=== PATIENT | male | born 1965 | race Caucasian/White ===

== ENCOUNTER 2023-07-18 13:14 | Emergency (ER) | payer OTHER, SELFPAY ==
[2023-07-18 13:25] VITALS: BP 137/85; PULSE 83; RESP 16; TEMP 36.4; O2SAT 100
--- NOTE | 2023-07-18 13:38 | ED.URI ---
HPI - URI/Sore Throat General Chief Complaint: Upper Respiratory Infection Stated Complaint: HEADACHE/COUGH/FEVER/BODY ACHES Time Seen by Provider: 07/18/23 13:39 Source: patient and RN notes reviewed Mode of arrival: ambulatory Limitations: no limitations History of Present Illness HPI Narrative: 58-year-old male presents concern for 4 day history of nasal congestion, sinus drainage, cough. He reports some chills and sweats, denies fever. He has not taken any medications for his symptoms. Reports his has similar symptoms MD elicited complaint: cough, sore throat and nasal congestion Related Data Home Medications Medication Instructions Recorded Confirmed amlodipine 10 mg tablet mg 07/18/23 aspirin 81 mg tablet 81 mg PO DAILY 07/18/23 07/18/23 atorvastatin 40 mg tablet mg 07/18/23 celecoxib 200 mg capsule mg 07/18/23 cholecalciferol (vitamin D3) 25 07/18/23 mcg (1,000 unit) tablet losartan 100 mg tablet mg 07/18/23 omeprazole 20 mg capsule,delayed mg 07/18/23 release phentermine 15 mg capsule mg 07/18/23 sildenafil 100 mg tablet mg 07/18/23 tirzepatide 7.5 mg/0.5 mL mg subcut 07/18/23 subcutaneous pen injector (Mounjaro) topiramate 25 mg tablet mg 07/18/23 Allergies Allergy/AdvReac Type Severity Reaction Status Date / Time No Known Allergies Allergy Verified 07/18/23 13:38 Review of Systems Review of Systems: CONSTITUTIONAL: Denies malaise, fever. Reports fatigue, chills, sweats EYES: Denies visual changes, redness, or discharge. ENT: Reports rhinorrhea, congestion, otalgia and sore throat. CARDIOVASCULAR: Denies chest pain, palpitations, or edema. RESPIRATORY: Reports cough. Denies dyspnea. GASTROINTESTINAL: Denies abdominal pain, nausea, vomiting, diarrhea SKIN: Denies rash or itching. MUSCULOSKELETAL: Denies myalgia. NEUROLOGIC: Denies headache. All systems reviewed & are unremarkable except as noted in HPI and below PMFSH Comments At time of signature, agree with nursing past medical, surgical, social and family history. There is no relevant family history pertinent to the presenting complaint Exam Narrative: GENERAL: Well-appearing, well-nourished, and in no acute distress. HEAD: Normocephalic EYES: PERRLA, conjunctivae clear ENT: Nares clear, turbinates edematous and erythematous, clear discharge. Mucous membranes moist. TM pearly hernandez with dull light reflex bilaterally; no tragal tenderness. Oropharynx not erythematous without lesions. Tonsils not enlarged and without exudate, no drooling, no hoarseness, no trismus, uvula midline. NECK: Supple. No lymphadenopathy CHEST: Clear to auscultation, breath sounds equal. No wheezing, rhonchi, rales, or stridor. No respiratory distress, speaks in full sentences. HEART: Regular rate and rhythm. No murmur heard. SKIN: Warm, dry, no rash. NEURO: Alert and oriented x3. PSYCH: Normal mood and affect Course Course Emergency Course: Patient offered fluid COVID test and declines Patient is aware of diagnosis, understands and agrees to treatment plan. Anticipatory guidance given. Patient agrees to follow-up as directed and is aware of reasons to seek care at the emergency department. Portions of this record may have been created with voice recognition software Level of Care: Express Care Visit Vital Signs Vital signs: Vital Signs Temperature 97.5 F L 07/18/23 13:25 Pulse Rate 83 07/18/23 13:25 Respiratory Rate 16 07/18/23 13:25 Blood Pressure 137/85 07/18/23 13:25 Pulse Oximetry 100 07/18/23 13:25 Temperature 97.5 F L 07/18/23 13:25 Pulse Rate 83 07/18/23 13:25 Respiratory Rate 16 07/18/23 13:25 Blood Pressure 137/85 07/18/23 13:25 Pulse Oximetry 100 07/18/23 13:25 Reviewed. MDM - URI/Sore Throat MDM Narrative Medical decision making narrative: Differential diagnosis considered: Benton virus, strep pharyngitis, allergic rhinitis, upper respiratory tract infection, sinusitis, r
== END 2023-07-18 14:05 | disposition home or self-care (01) ==
PROVIDERS: Emergency Provider Nurse Practitioner
DX: J06.9 Acute upper respiratory infection, unspecified (principal); E78.00 Pure hypercholesterolemia, unspecified; I10 Essential (primary) hypertension; M19.90 Unspecified osteoarthritis, unspecified site
CPT/HCPCS: 99213; G0463

== ENCOUNTER 2025-06-08 07:45 | Outpatient (CLI) | payer OTHER, SELFPAY ==
--- NOTE | ~2025-06-08 | CT_ITS ---
EXAM/PROCEDURE: CT abdomen pelvis wo con HISTORY: Flank pain COMPARISON: None available. TECHNIQUE: Noncontrast CT of the abdomen and pelvis FINDINGS: Minimal fibrotic and benign granulomatous appearing changes in lung bases which are otherwise clear. Borderline cardiomegaly with coronary artery calcifications. No significant pericardial effusion. In the abdomen and pelvis, 7 mm low-density liver lesion left lobe image 19 series 2 probably represents benign cyst plus patient has known history of malignancy. 10 mm lower pole nonobstructing right kidney stone with at least 3 other punctate nonobstructing lower pole right kidney stones. 3 mm nonobstructing lower pole left kidney stone. No obstructing or definite ureteral stones. No urinary bladder stones. Urinary bladder appears normal for technique. Mildly enlarged prostate. Seminal vesicles unremarkable. 2.4 cm minimally complex appearing left renal cyst along the lower pole lateral cortex. No hydroureteronephrosis. No bulky mesenteric or retroperitoneal lymphadenopathy or masses. No grossly inflamed appendix or AAA. Mild to moderate atherosclerotic disease throughout the arteries including moderately extensive calcification at the renal artery origins on both sides. Several tiny layering gallstones with no gross CT evidence of acute cholecystitis appearing otitis. Stomach is unopacified and nondistended but no gross acute abnormality seen. The bowel gas pattern is nonobstructive with no free air free fluid or pneumatosis. Diffuse degenerative changes throughout the bones which otherwise appear intact. Tiny fat-containing inguinal hernias. Extra peritoneal soft tissues unremarkable. IMPRESSION: Directed noncontrast exam demonstrating bilateral nephrolithiasis with no hydroureteronephrosis or definite ureteral stones seen. Several other chronic findings as above. 2.4 cm minimally complex cystic lesion in the left kidney is not fully characterized and follow-up renal ultrasound recommended for complete evaluation. Reviewed, dictated and finalized at location A. TENDER IMPRESSION: Directed noncontrast exam demonstrating bilateral nephrolithiasis with no hydro ureteronephrosis or definite ureteral stones seen. Several other chronic findin gs as above. 2.4 cm minimally complex cystic lesion in the left kidney is not f ully characterized and follow-up renal ultrasound recommended for complete eval uation.
== END 2025-06-08 07:46 | disposition home or self-care (01) ==
LOC: MICIMG 07:46
PROVIDERS: Visit Provider Urology
DX: R10.A1 Flank pain, right side (principal)
CPT/HCPCS: 74176

== ENCOUNTER 2025-06-19 16:13 | Outpatient (CLI) | payer OTHER, SELFPAY ==
--- NOTE | ~2025-06-19 | XR_ITS ---
XR abdomen/kub 1V INDICATION: FLANK PAIN REFERENCE: NONE FINDINGS: A supine view of the abdomen is submitted. The bowel gas pattern is nonobstructive. 11.4 mm right intrarenal stone is noted. There are several smaller 3 to 4 mm stones bilaterally. Osseous structures are intact. IMPRESSION: 11.4 mm right renal stone. Reviewed, dictated and finalized at location S. Y FILTER TENDER IMPRESSION: 11.4 mm right renal stone.
--- OUTSIDE RECORDS SUMMARY | 2025-06-19 16:15 | XMS_ITS | Clinical Summary ---
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 This disclosure is being madepursuant to the Care Everywhere program and may not contain all information available regarding this patient. Last updated 18.[facility] Allergies No known active allergies Medications * Be aware that medications may not be up to date on this document. Alwaysverify current medications with the patient. rosuvastatin (CRESTOR) 5 MG tablet Take 5 mg by mouth once daily 0 12/09/2016 Active omeprazole (PRILOSEC) 20 MG capsule Take 20 mg by mouth once daily 1 11/19/2016 Active metoprolol tartrate (LOPRESSOR) 50 MG tablet Take 50 mg by mouth once daily 0 12/01/2016 Active losartan-hydroCH LOROthiazide (HYZAAR) 100-12.5 MG tablet Take by mouth once daily 0 11/19/2016 Active furosemide (LASIX) 20 MG tablet Take 20 mg by mouth once daily 3 11/27/2016 Active Potassium 99 MG tablet Take 99 mg by mouth once daily Active diclofenac sodium EC (VOLTAREN) 75 MG tablet Take 1 tablet by mouth once daily 0 07/19/2018 Active topiramate (Topamax) 50 MG tablet Take 1 (one) tablet by mouth 2 times daily 11/13/2023 Active Mounjaro 10 MG/0.5ML injection Inject 10 (ten) mg into muscle every 7 days 11/13/2023 Active sildenafil (Viagra) 100 MG tablet Take 1 (one) tablet by mouth once daily as needed 11/24/2023 Active sulfamethoxazole -trimethoprim (Bactrim DS; Septra DS) 800-160 MG tabletIndication s:Right knee pain, unspecified chronicity,Effus ion of bursa of right knee Take 1 (one) tablet by mouth 2 times daily 28 tablet 03/02/2024 Active celecoxib (CeleBREX) 200 MG capsule TAKE 1 CAPSULE(200 MG) BY MOUTH DAILY 03/15/2024 Active Active Problems Problem Noted Date Diagnosed Date Status post left knee replacement 05/06/2018 Status post right knee replacement 12/03/2017 Primary osteoarthritis of both knees 12/11/2016 Social History Tobacco Use Types Packs/Day Years Used Date Smoking Tobacco: Never Smokeless Tobacco: Never Tobacco Cessation:Counseling Given: No Alcohol Use Standard Drinks/Week Comments Yes 3 (1 standard drink = 0.6 oz pur e alcohol) daily AUDIT-C Answer Date Recorded Q1: How often do you have a drink containing alc ohol? Monthly or less 02/28/2024 Q2: How many drinks containi ng alcohol do you have on a typical day when you are drinking? 1 or 2 02/28/2024 Q3: How often do you have si x or more drinks on one occasion? Never 02/28/2024 PHQ-2 Answer Date Recorded Patient Health Questionnaire-2 Score 1 03/15/2024 Sex and Gender Information Value Date Recorded Sex Assigned at Not on file Legal Sex Male 1:47 PM CDT Gender Identity Not on file Sexual Orientation Not on file Last Filed Vital Signs Vital Sign Reading Time Taken Comments Blood Pressure 134/71 02/28/2024 12:16 PM CDT Pulse 60 02/28/2024 12:18 PM CDT Temperature 36.9 C (98.5 F) 02/28/2024 10:05 AM CDT Respiratory Rate 19 02/28/2024 12:18 PM CDT Oxygen Saturation 99% 02/28/2024 10:05 AM CDT Inhaled Oxygen Concentration - - Weight 104.3 kg (230 lb) 02/28/2024 10:03 AM CDT Height 162.6 cm (5' 4) 02/28/2024 10:03 AM CDT Body Mass Index 39.48 02/28/2024 10:03 AM CDT Plan of Treatment Health Maintenance Due Date Last Done Comments COLON MONITORING 1963 COLONOSCOPY - COLON CA SCREENING 1963 CT COLONOGRAPHY - COLON CA SCREENING 1963 FIT - COLON CA SCREENING 1963 FLEX SIG - COLON CA SCREENING 1963 HIV SCREENING 1978 HEPATITIS C SCREENING 01/21/1981 DTAP/TDAP/TD VACCINES (1 - Tdap) 1982 PNEUMOCOCCAL VACCINE 50+ (1 of 1 - PCV) 2013 ZOSTER VACCINE (1 of 2) 2013 DEPRESSION SCREENING 06/22/2024 02/25/2024 COVID-19 VACCINE (3 - 2024-2 6 season) 2025 07/02/2021, 08/28/2020 INFLUENZA VACCINE (#1) 2025 04/23/2015 COLOGUARD (AGES 45-75) - COL ON CA SCREENING 06/29/2025 06/29/2022 Colorectal Cancer Screening 06/29/2025 SCREENING FOR DIABETES 02/27/2027 , 11/17/2017 Respiratory Syncytial Virus (RSV) Vaccine Pt: or over 60 yrs (1 - 1-dose 75+ series) 2038 HEPATITIS B VACCINE Aged Out No longe r eligible based on patient's age to complete this topic HIB VACCINE Aged Out No longer eligi ble based on patient's age to complete this topic HPV VACCINE Aged Out No longer eligi ble based on patient's age to complete this topic MENINGOCOCCAL (Group B) VACCINE SHARED DECISION-MAKING Aged Out No longer eligible based on patient's age to complete this topic MENINGOCOCCAL GROUPS A/C/Y/W VACCINE Aged Out No longer eligible b ased on patient's age to complete this topic Medical Devices Implanted Type Area Cleaner Device Identifier Shelf Expiration Date Model / Serial / Lot Fl[employer]ito Bone [place]-G Hv 40/20 Implanted:Qty: 1 on 12/03/2017 by Ulysses Hinton MD at [facility] Right: Knee [employer] 04/21/2019 [id number] / / [id number] Cmpnt Ptlr 31mm 1 Pg Wire Ascnt Arcm Kn Implanted:Qty: 1 on 12/03/2017 by Ulysses Hinton MD at [facility] Right: Knee [employer] 10/21/2022 [id number] / / [id number] Cmpnt Fem Kn Rt Cr Cmnt Prm Vngrd Intlk Implanted:Qty: 1 on 12/03/2017 by Ulysses Hinton MD at [facility] Right: Knee [employer] 10/06/2027 [id number] / / [id number] Tray Tib 79mm Kn Cocr I Beam Implanted:Qty: 1 on 12/03/2017 by Ulysses Hinton MD at [facility] Right: Knee [employer] 09/22/2027 [id number] / / [id number] Brng [id number] Vngrd Arcm Kn Ant Stab Implanted:Qty: 1 on 12/03/2017 by Ulysses Hinton MD at [facility] Right: Knee [employer] 12/11/2020 [id number] / / [id number] Brng [id number] Vngrd Arcm Kn Ant Stab Implanted:Qty: 1 on 05/06/2018 by Ulysses Hinton MD at [facility] Left: Knee [employer] 01/21/2023 [id number] / / [id number] Cmnt Bone Cblt 40gm Hvisc Strl Implanted:Qty: 1 on 05/06/2018 by Ulysses Hinton MD at [facility] Left: Knee [employer] 11/05/2019 [id number] / / [id number] Tray Tib 79mm Kn Cocr I Beam Implanted:Qty: 1 on 05/06/2018 by Ulysses Hinton MD at [facility] Left: Knee [employer] 03/08/2028 [id number] / / [id number] Cmpnt Fem Kn Lt Cr Cmnt Prm Vngrd Intlk Implanted:Qty: 1 on 05/06/2018 by Ulysses Hinton MD at [facility] Left: Knee [employer] 02/09/2028 [id number] / / [id number] Description:LEFT 70MM Cmpnt Ptlr 31mm 1 Pg Wire Ascnt Arcm Kn Implanted:Qty: 1 on 05/06/2018 by Ulysses Hinton MD at [facility] Left: Knee [employer] 04/26/2023 [id number] / / [id number] Procedures Procedure Name Priority Date/Time Associated Diagnosis Comments COMPREHENSIVE METABOLIC PANEL STAT 02/28/2024 10:50 AM CDT from Last 3 Months or Most Recently Relevant to Health Maintenance Results * (ABNORMAL) COMPREHENSIVE METABOLIC PANEL (02/28/2024 10:50 AM CDT) Glucose 111(H) 70 - 105 mg/dL 02/28/2024 11:18 AM CDT [facility] Sodium 141 136 - 145 mmol/L 02/28/2024 11:18 AM CDT [facility] Potassium 3.7 3.5 - 5.1 mmol/L 02/28/2024 11:18 AM CDT [facility] Chloride 111(H) 98 - 107 mmol/L 02/28/2024 11:18 AM CDT [facility] CO2 20(L) 22 - 29 mmol/L 02/28/2024 11:18 AM CDT [facility] Calcium 9.5 8.4 - 10.4 mg/dL 02/28/2024 11:18 AM CDT [facility] Anion Gap 10 6 - 16 mmol/L 02/28/2024 11:18 AM CDT [facility] BUN 17 7 - 26 mg/dL 02/28/2024 11:18 AM CDT [facility] Creatinine 0.91 0.72 - 1.25 mg/dL 02/28/2024 11:18 AM CDT [facility] Alkaline Phosphatase 101 40 - 150 U/L 02/28/2024 11:18 AM CDT [facility] ALT 25 0 - 55 U/L 02/28/2024 11:18 AM CDT [facility] AST 21 5 - 34 U/L 02/28/2024 11:18 AM CDT [facility] Protein Total 7.2 6.4 - 8.3 gm/dL 02/28/2024 11:18 AM CDT [facility] Albumin 3.4 3.4 - 5.0 gm/dL 02/28/2024 11:18 AM CDT [facility] Bilirubin Total 0.3 0.2 - 1.2 mg/dL 02/28/2024 11:18 AM CDT [facility] eGFR by CKD-EPI >90 >=90 mL/min/1.7 3 m2 02/28/2024 11:18 AM CDT [facility] Blood BLOOD SPECIMEN / Unknown Venipuncture / Unknown 02/28/2024 10:50 AM CDT 02/28/2024 11:03 AM CDT Nataly Bell PA-C LAB - CHEMISTRY ORDERABLES Final Result Performing Organization Address City/State/[facility] Co de Phone Number [facility] [id number] [phone] from Last 3 Months or Most Recently Relevant to Health Maintenance Insurance [facility] [place] [address] Advance Directives * Full Code (Latest Code Status on File) Date Activated Date Inactivated Comments 05/06/2018 10:42 AM 05/08/2018 2:10 PM * Full Code Date Activated Date Inactivated Comments 12/03/2017 11:14 AM 12/05/2017 1:12 PM Care Teams Bleach Liquor Maker Relationship Specialty Start Date End Date Brian Yang MD [address] [place] [id number] PCP - General Family Medicine 02/24/24 [place] [id number] [address] Orthopedic Surgery 02/28/14
== END 2025-06-19 16:14 | disposition home or self-care (01) ==
PROVIDERS: Visit Provider Urology
DX: R10.A0 Flank pain, unspecified side (principal); N20.0 Calculus of kidney
CPT/HCPCS: 74018